=== PATIENT | female | born 1990 | race American Indian/Alaskan Native ===

== ENCOUNTER 2018-07-19 20:08 | Outpatient (CLI) | payer OTHER ==
[2018-07-19] MEDS ORDERED: LACTATED RINGERS 1,000 ML IV ONE (23:03)
[2018-07-20 00:04] LABS: Bilirubin,Urine NEG (Negative); Blood,Urine SM (Negative); Color,Urine Straw (Yellow); Mucus,Urine FEW /HPF; Protein,Urine <15 mg/dL mg/dL (Negative); Urobilinogen,Urine < 2.0 mg/dL (<2.0)
[2018-07-20] MEDS ORDERED: BRETHINE SUB-Q ONE (00:39)
[2018-07-20 01:06] VITALS: BP 123/78
[2018-07-20] MEDS ORDERED: LACTATED RINGERS 1,000 ML IV SCH (02:00)
== END 2018-07-20 02:30 | disposition home or self-care (01) ==
LOC: TRG 20:08 → LD 20:23 → TRG 07-20 02:30
PROVIDERS: ATTEND Obstetrics & Gynecology
DX: O47.02 False labor before 37 completed weeks of gestation, second trimester (principal); Z3A.24 24 weeks gestation of pregnancy
CPT/HCPCS: 59025; 81001; 96360; 96372; J3105; J7120

== ENCOUNTER 2018-08-08 08:34 | Outpatient (CLI) | payer OTHER ==
[2018-08-08 08:50] VITALS: BP 116/67
[2018-08-08] MEDS ORDERED: LACTATED RINGERS 1,000 ML IV ONE (09:11)
[2018-08-08] MEDS ORDERED: TYLENOL PO ONE (09:14)
[2018-08-08 09:32] LABS: Basophils % (Auto) 0.5 % (0.0-1.8); Eosinophils % (Auto) 0.2 % (0.0-4.3); Hematocrit 29.7 % (30.3-42.9); Hemoglobin 10.2 gm/dl (10.1-14.3); Lymphocytes # (Auto) 1.3 K/mm3 (1.2-5.4); Lymphocytes % (Auto) 18.2 % (13.4-35.0); Mean Corpuscular HGB Conc 34 % (30-34); Mean Corpuscular Hemoglobin 31 pg (28-32); Mean Corpuscular Volume 89 fl (79-97); Monocytes # (Auto) 0.8 K/mm3 (0.0-0.8); Monocytes % (Auto) 11.5 % (0.0-7.3); Platelet Count 268 K/mm3 (140-440); Red Blood Count 3.34 M/mm3 (3.65-5.03); Red Cell Distribution Width 14.3 % (13.2-15.2)
[2018-08-08 09:42] LABS: INR 0.89 (0.87-1.13)
[2018-08-08 09:43] LABS: Partial Thromboplastin Time 23.9 Sec. (24.2-36.6)
--- NOTE | 2018-08-08 12:02 | Ultrasound Report ---
FINAL REPORT EXAM: US OB BPP WO NON-STRESS HISTORY: decreased movement TECHNIQUE: Grayscale and color doppler ultrasound of the fetus was performed for biophysical profile. PRIORS: Ob ultrasound from 07/25/2018. FINDINGS: A single, live intrauterine fetus is present in cephalic presentation with a heart rate of 143-149 beats per minute. The amniotic fluid index is 12.6 centimeters. The maternal cervix is closed measuring 3.2 centimeters in length. A 16.2 x 14.4 x 13.7 centimeter fibroid is seen within the uterine fundus. Estimated gestational age is 26 weeks and 6 days with an HECTOR of 11/08/2018. Biophysical profile score of 8 out of 8 was noted. Scores of 2 out of 2 were given for breathing movements, movements, posterior and tone and qualitative amniotic fluid volume. IMPRESSION: Normal biophysical profile. Large fundal uterine fibroid.
--- NOTE | 2018-08-08 12:05 | Ultrasound Report ---
FINAL REPORT EXAM: US OB LIMITED HISTORY: r/o abruption TECHNIQUE: Limited OB ultrasound was performed. PRIORS: Ob ultrasound from 07/25/2018. FINDINGS: A single intrauterine fetus is present in cephalic presentation with a heart rate of 149 beats per minute. The maternal cervix is closed measuring 3.2 centimeters in length. 16.2 x 14.4 x 13.7 centimeter fibroid is seen within the uterine fundus. The placenta is grade 0 and fundal and to the left in location. No evidence of placental abruption. The amniotic fluid index is 12.6 centimeters. Estimated gestational age is 26 weeks and 6 days with an HECTOR of 11/08/2018. IMPRESSION: 1. No evidence of placental abruption. 2. Large fundal uterine fibroid.
== END 2018-08-08 10:40 | disposition home or self-care (01) ==
LOC: TRG 08:34
PROVIDERS: ATTEND Obstetrics & Gynecology
DX: O47.02 False labor before 37 completed weeks of gestation, second trimester (principal); O34.12 Maternal care for benign tumor of corpus uteri, second trimester; O10.012 Pre-existing essential hypertension complicating pregnancy, second trimester; O99.212 Obesity complicating pregnancy, second trimester; E66.01 Morbid (severe) obesity due to excess calories; D25.9 Leiomyoma of uterus, unspecified; Z3A.26 26 weeks gestation of pregnancy
CPT/HCPCS: 36415; 59025; 76815; 76819; 85025; 85610; 85730; 96360; J7120

== ENCOUNTER 2018-08-11 15:31 | Inpatient (IN) | payer OTHER ==
[2018-08-11] MEDS ORDERED: LACTATED RINGERS 500 ML IV ONE (17:17)
[2018-08-11] MEDS ORDERED: DEEP SEA NS PRN (21:02)
[2018-08-11] MEDS ORDERED: BENADRYL PO PRN (21:02)
[2018-08-11] MEDS ORDERED: AMBIEN PO PRN (21:02)
[2018-08-11] MEDS ORDERED: TYLENOL PO PRN (21:02)
[2018-08-11] MEDS ORDERED: COLACE PO PRN (21:02)
[2018-08-11] MEDS ORDERED: ZOFRAN IV PRN (21:02)
--- NOTE | 2018-08-11 21:18 | Ultrasound Report ---
FINAL REPORT PROCEDURE: US OB LIMITED TECHNIQUE: Real-time limited sonographic examination was performed for evaluation of size, position, heartbeat, fluid volume for each fetus with image documentation (1 or more fetuses). CPT 23779 HISTORY: R/O ABRUPTION COMPARISON: 08/08/2018 FINDINGS: MATERNAL Uterus: Previously seen fibroid is not visualized on this exam. Cervix length: Transabdominal measurement is 3.2 cm. Internal Os: Not well resolved. FETUS IUP: Single living intrauterine . Position: Cephalic. Placental position: Fundal and left lateral, without previa. The placenta is heterogeneous in echogenicity. No specific sonographic evidence for abruption Amniotic fluid volume: Amniotic fluid index measures 8.0 centimeters Heart rate and rhythm: 150 BPM, Regular . anatomic survey: Not performed. IMPRESSION: The placenta is heterogeneous in echogenicity. No specific sonographic evidence for abruption Amniotic fluid index measures 8.0 centimeters.
--- NOTE | 2018-08-11 21:45 | History and Physical Report ---
History of Present Illness Chief complaint: vaginal bleeding History of present illness: Pt is a 28 year old -Thai female primigravida HECTOR 11/08/18 at 27w2d with a complaint of bring red vaginal bleeding. She has had three visits to the ED within the past week for similar complaint. She denies contractions at this time. She has a recent hospitalization in early July for vaginal bleeding when she was diagnosed with a suspected chronic abruption. She has had care at [facility] since transfer into care in the second trimester with comanagement by [facility] secondary to multiple anomalies including Dandy Walker malformation, chronic hypertension, morbid obesity, subchorionic hemorrhage in first trimester resolved, Klebsiella UTI in February 2018, twin with vanishing twin with question of molar but no evidence on MFM scan 06/24/18, questionable previable PPROM in second trimester, large anterior uterine fibroid. She is GBS unknown. 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 Social history: no significant social history - Obstetrical History Expected Date of Delivery: 11/08/18 Actual Gestation: 27 Week(s) 2 Day(s) : 1 Medications and Allergies Allergies Allergy/AdvReac Type Severity Reaction Status Date / Time No Known Allergies Allergy Verified 08/08/18 09:18 Home Medications Medication Instructions Recorded Confirmed Last Taken Type Vit-Fe Fumar-FA [ 1 tab PO QDAY 07/20/18 08/08/18 08/07/18 09: 00 History Vitamin] 1 Active Meds: Active Medications Acetaminophen (Tylenol) 650 mg PO Q4H PRN PRN Reason: Pain MILD(1-3)/Fever >100.5/FLYNN Diphenhydramine HCl (Benadryl) 25 mg PO Q6H PRN PRN Reason: Itching Docusate Sodium (Colace) 100 mg PO Q12H PRN PRN Reason: Constipation Lactated Ringer's (Lactated Ringers) 1,000 mls @ 125 mls/hr IV DIRECT BEVERLEY Multivitamins/Iron/Calcium ( Vitamin) 1 each PO QDAY BEVERLEY Ondansetron HCl (Zofran) 4 mg IV Q6H PRN PRN Reason: Nausea And Vomiting Sodium Chloride (Deep Sea) 2 spray NS Q4H PRN PRN Reason: Congestion Zolpidem Tartrate (Ambien) 10 mg PO ONCE PRN PRN Reason: Sleep Review of Systems All systems: negative - Vital Signs Vital signs: Vital Signs Pulse Pulse Ox 71 100 08/11/18 16:47 08/11/18 16:47 Temp Pulse Resp BP Pulse Ox 70 99 08/11/18 17:37 08/11/18 17:37 Results Result Diagrams: 08/11/18 21:16 All other labs normal. Assessment and Plan A: IUP at 27w2d Chronic abruption with bright red vaginal bleeding Multiple anomalies including Dandy Walker Malformation Suspected previable PPROM, ruled out Chronic HTN Morbid Obesity P: Admit to antepartum service for observation Pad counts Ultrasound to evaluate for evidence of abruption Closely monitor maternal and status
[2018-08-11 21:53] LABS: Hematocrit 30.2 % (30.3-42.9); Hemoglobin 10.1 gm/dl (10.1-14.3); Mean Corpuscular HGB Conc 34 % (30-34); Mean Corpuscular Hemoglobin 30 pg (28-32); Mean Corpuscular Volume 89 fl (79-97); Platelet Count 232 K/mm3 (140-440); Red Blood Count 3.37 M/mm3 (3.65-5.03); Red Cell Distribution Width 14.7 % (13.2-15.2)
[2018-08-11] MEDS: LACTATED RINGERS 1,000 ML IV SCH (22:20)
[2018-08-12 02:38] LABS: Bacteria,Urine 1+ /HPF (Negative); Bilirubin,Urine NEG (Negative); Blood,Urine LG (Negative); Color,Urine Red (Yellow); Mucus,Urine 2+ /HPF; Urobilinogen,Urine < 2.0 mg/dL (<2.0)
[2018-08-12 02:40] LABS: RBC,Urine > 182.0 /HPF (0.0-6.0); WBC,Urine > 182.0 /HPF (0.0-6.0)
[2018-08-12] MEDS: LACTATED RINGERS 1,000 ML IV SCH ×3 (04:35→19:20)
--- NOTE | 2018-08-12 08:44 | Progress Note ---
Assessment and Plan A: IUP at 27w3d Chronic abruption with bright red vaginal bleeding Multiple anomalies including Dandy Walker Malformation Suspected previable PPROM, ruled out Chronic HTN Morbid Obesity P: close observation Pad counts Ultrasound to evaluate for evidence of abruption Closely monitor maternal and status Consult urgent/ spoke with Dr. Shin Patient had one decl for 2 min resolved with changing position, ivf Subjective - Subjective Date of service: 08/12/18 Principal diagnosis: IUp 27 weeks, chronic abruption, vag bleeding, multiple anomalies Patient reports: vaginal bleeding, movement normal, no loss of fluid, no contractions Objective - Vital Signs Vital Signs: Vital Signs - 12hr 08/11/18 08/11/18 08/11/18 21:55 22:13 22:43 Temperature 98.3 F Pulse Rate 62 65 Respiratory 18 Rate Blood Pressure 112/72 115/66 Blood Pressure [Right] O2 Sat by Pulse Oximetry 08/11/18 08/11/18 08/12/18 23:14 23:44 00:14 Temperature Pulse Rate 56 L 60 59 L Respiratory Rate Blood Pressure 100/50 97/55 99/52 Blood Pressure [Right] O2 Sat by Pulse Oximetry 08/12/18 08/12/18 08/12/18 00:44 01:14 04:34 Temperature 98.5 F Pulse Rate 61 65 65 Respiratory 16 Rate Blood Pressure 95/54 98/52 119/67 Blood Pressure [Right] O2 Sat by Pulse Oximetry 08/12/18 08/12/18 08/12/18 07:32 07:33 07:36 Temperature 98.2 F Pulse Rate 69 65 62 Respiratory 18 Rate Blood Pressure 116/67 Blood Pressure 116/67 [Right] O2 Sat by Pulse 98 99 Oximetry 08/12/18 08/12/18 08/12/18 07:37 07:42 07:47 Temperature Pulse Rate 73 60 60 Respiratory Rate Blood Pressure Blood Pressure [Right] O2 Sat by Pulse 99 100 100 Oximetry 08/12/18 08/12/18 08/12/18 07:52 07:54 07:57 Temperature Pulse Rate 62 71 59 L Respiratory Rate Blood Pressure Blood Pressure [Right] O2 Sat by Pulse 100 93 100 Oximetry 08/12/18 08/12/18 08/12/18 08:02 08:07 08:12 Temperature Pulse Rate 61 62 63 Respiratory Rate Blood Pressure Blood Pressure [Right] O2 Sat by Pulse 100 100 98 Oximetry 08/12/18 08/12/18 08/12/18 08:14 08:17 08:22 Temperature Pulse Rate 74 69 Respiratory Rate Blood Pressure Blood Pressure [Right] O2 Sat by Pulse 49 L 100 100 Oximetry - Exam Breasts: deferred Cardiovascular: Regular rate, Normal S1 Lungs: Clear to auscultation, Normal air movement Abdomen: Present: normal appearance, soft, normal bowel sounds. Absent: distention, tenderness, guarding Vulva: both: normal Uterus: Present: normal, firm. Absent: bogginess, tenderness FHR: category 2 Uterine Tone Measurement Phase: Resting - Labs Labs: Abnormal Labs 08/11/18 08/11/18 01:28 21:16 RBC 3.37 L Hct 30.2 L Urine WBC (Auto) > 182.0 H U Epithel Cells (Auto) 17.0 H Laboratory Results - last 24 hr 08/11/18 08/11/18 08/11/18 01:28 21:16 21:27 WBC 9.0 RBC 3.37 L Hgb 10.1 Hct 30.2 L MCV 89 MCH 30 MCHC 34 RDW 14.7 Plt Count 232 Urine Color Red Urine Turbidity Cloudy Urine pH 5.0 Ur Specific [place] 1.021 Urine Protein 100 mg/dl Urine Glucose (UA) Neg Urine Ketones 20 Urine Blood Lg Urine Nitrite Neg Urine Bilirubin Neg Urine Urobilinogen < 2.0 Ur Leukocyte Esterase Sm Urine WBC (Auto) > 182.0 H Urine RBC (Auto) > 182.0 U Epithel Cells (Auto) 17.0 H Urine Bacteria (Auto) 1+ Urine Mucus 2+ Blood Type B POSITIVE Antibody Screen Negative
--- NOTE | 2018-08-12 08:49 | Event Note ---
Date: 08/12/18 Reviewed lab data signs from urinalysis for UTI added rocephin for UTI
[2018-08-12] MEDS ORDERED: PHENERGAN PR PRN (09:21)
--- NOTE | 2018-08-12 09:21 | Anesthesia Consultation ---
Anesthesia Consult and Med Hx Date of service: 08/12/18 - Airway Anesthetic Teeth Evaluation: Good ROM Head & Neck: Adequate Mental/Hyoid Distance: Adequate Mallampati Class: Class III Intubation Access Assessment: Possibly Difficult - Pre-Operative Health Status ASA Pre-Surgery Classification: ASA3, Emergency Proposed Anesthetic Plan: Epidural, Spinal - Pulmonary Hx Asthma: No COPD: No Hx Pneumonia: No - Cardiovascular System Hx Hypertension: No - Central Nervous System Hx Seizures: No Hx Psychiatric Problems: No - Endocrine Hx Renal Disease: No Hx End Stage Renal Disease: No Hx Hypothyroidism: No Hx Hyperthyroidism: No - Hematic Hx Anemia: No Hx Sickle Cell Disease: No - Other Systems Hx Alcohol Use: No Hx Obesity: Yes (BMI 42.6) - Additional Comments Anesthesia Medical History Comments: chronic abruption
[2018-08-12] MEDS ORDERED: ANCEF/STERILE WATER 2 GM/20 ML 2 GM/20 ML SYRINGE IV ONE (09:27)
[2018-08-12] MEDS ORDERED: PEPCID IV ONE (09:27)
[2018-08-12] MEDS ORDERED: REGLAN ONE (09:27)
[2018-08-12] MEDS ORDERED: BICITRA ONE (09:27)
--- NOTE | 2018-08-12 09:47 | Consultation ---
History of Present Illness Consult date: 08/12/18 Requesting physician: MARIA INES MATUTE History of present illness: Ms. Jose Luis Haskins is a 28yo, , presenting to [facility] on 08/11/18 due to vaginal bleeding - Suspected Abruption This is patients third admission for vag bleeding was also seen 07/20/18 and this past Friday Patient showed pic on cell phone of large clots Patient now having repetitive decels on EFM Dr. 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 Patient reports she had Ped Neurology Consult Patient also had in house Ped Cardiology Consult at admission on 07/20/18 that was normal She previously declined elective termination early in . She is s/p amniocentesis and NIPT- Negative, male fetus. 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 - Obstetrical History : 1 Medications and Allergies Allergies Allergy/AdvReac Type Severity Reaction Status Date / Time No Known Allergies Allergy Verified 08/08/18 09:18 Home Medications Medication Instructions Recorded Confirmed Last Taken Type Vit-Fe Fumar-FA [ 1 tab PO QDAY 07/20/18 08/12/18 08/10/18 History Vitamin] Active Meds: Active Medications Acetaminophen (Tylenol) 650 mg PO Q4H PRN PRN Reason: Pain MILD(1-3)/Fever >100.5/FLYNN Betamethasone Acet/Betameth SodPhos (Celestone Soluspan) 12 mg IM ONCE ONE Stop: 08/12/18 09:28 Citric Acid/Sodium Citrate (Bicitra) 30 ml PO ONCE ONE Stop: 08/12/18 09:27 Diphenhydramine HCl (Benadryl) 25 mg PO Q6H PRN PRN Reason: Itching Diphenhydramine HCl (Benadryl) 12.5 mg IV Q2H PRN PRN Reason: Itching Docusate Sodium (Colace) 100 mg PO Q12H PRN PRN Reason: Constipation Famotidine (Pepcid) 20 mg IV ONCE ONE Stop: 08/12/18 09:27 Hydromorphone HCl (Dilaudid) 0.5 mg IV Q5M PRN PRN Reason: Breakthrough Pain Lactated Ringer's (Lactated Ringers) 1,000 mls @ 125 mls/hr IV DIRECT BEVERLEY Last Admin: 08/12/18 04:35 Dose: 125 mls/hr Ceftriaxone Sodium (Rocephin/Ns 1 Gm/50 Ml) 1 gm in 50 mls @ 100 mls/hr IV Q24HR BEVERLEY; Protocol Cefazolin Sodium (Ancef/Sterile Water 2 Gm/20 Ml) 2 gm in 20 mls @ 80 mls/hr IV PREOP NR; Protocol Lactated Ringer's (Lactated Ringers) 1,000 mls @ 2,250 mls/hr IV PREOP BEVERLEY Stop: 08/13/18 10:27 Oxytocin/Sodium Chloride (Pitocin/Ns 20 Unit/1000ml Drip) 20 units in 1,000 mls @ 0 mls/hr IV TITR BEVERLEY Metoclopramide HCl (Reglan) 10 mg IV ONCE ONE Stop: 08/12/18 09:27 Multivitamins/Iron/Calcium ( Vitamin) 1 each PO QDAY BEVERLEY Naloxone HCl (Narcan 0.4 Mg/1 Ml) 0.2 mg IV Q2MIN PRN PRN Reason: Res Rate </= 8 or 02 SAT < 92% Ondansetron HCl (Zofran) 4 mg IV Q6H PRN PRN Reason: Nausea And Vomiting Ondansetron HCl (Zofran) 4 mg IV Q8H PRN PRN Reason: Nausea And Vomiting Promethazine HCl (Phenergan) 25 mg PO Q6H PRN PRN Reason: Nausea And Vomiting Promethazine HCl (Phenergan) 25 mg VT Q6H PRN PRN Reason: Nausea And Vomiting Sodium Chloride (Deep Sea) 2 spray NS Q4H PRN PRN Reason: Congestion Sodium Chloride (Sodium Chloride Flush Syringe 10 Ml) 10 ml IV PRN NR Zolpidem Tartrate (Ambien) 10 mg PO ONCE PRN PRN Reason: Sleep - Vital Signs Vital signs: Vital Signs Pulse Pulse Ox 71 100 08/11/18 16:47 08/11/18 16:47 Temp Pulse Resp BP Pulse Ox 98.2 F 69 18 116/67 100 08/12/18 07:36 08/12/18 08:22 08/12/18 07:36 08/12/18 07:36 08/12/18 08:22 Results Result Diagrams: 08/11/18 21:16 Abnormal lab results 08/11/18 08/11/18 Range/Units 01:28 21:16 RBC 3.37 L (3.65-5.03) M/mm3 Hct 30.2 L (30.3-42.9) % Urine WBC (Auto) > 182.0 H (0.0-6.0) /HPF U Epithel Cells (Auto) 17.0 H (0-13.0) /HPF All other labs normal. Assessment and Plan Jones IUP at 27 weeks gestation - Suspected Placental Abruption Increased Vag Bleeding and Repetitive Decels on EFM Multiple anomalies: Dandy Walker Malformation Dilated Bilateral Hydrocephaly Absent Cerebellar Vermis Dangling Bilateral Chorid Plexus Splayed Cerebellum Large posterior Fossa Dilated 3rd and 4th ventricle Enlarge head Pediatric Echo - Normal Red vaginal bleeding S/P Betamethasone x 2 this was 2 weeks ago Morbid Obesity CHTN- not currently medicated S/P amniocentesis on 06/16/18, NIPT- negative, male Anemia Recommendations: 1. Discussed with patient and Dr. Matute due to 3rd admission and increased vaginal bleeding passing clots and non reassuring tracing will proceed with Delivery 2. Notify NICU - done 3. Notify Ped Neurology Suspected Dandy Walker 4. Type and Cross due to Anemia 5. Patient understands above recommendations and agrees with delivery at this time
[2018-08-12] MEDS ORDERED: ANCEF/STERILE WATER 2 GM/20 ML 2 GM/20 ML SYRINGE IV NR (10:00)
[2018-08-12] MEDS ORDERED: LACTATED RINGERS 1,000 ML IV SCH (10:00)
[2018-08-12] MEDS ORDERED: SODIUM CHLORIDE FLUSH SYRINGE 10 ML IV NR ×2 (10:00→12:00)
[2018-08-12] MEDS ORDERED: NACL 0.9% 500 ML 500 ML IV NR (10:02)
[2018-08-12] MEDS ORDERED: ANCEF/STERILE WATER 2 GM/20 ML IV ONE (10:12)
[2018-08-12] MEDS ORDERED: CELESTONE SOLUSPAN IM ONE (10:22)
[2018-08-12] MEDS ORDERED: NACL 0.9% IR ONE (10:23)
[2018-08-12] MEDS ORDERED: WATER FOR IRRIG STERILE IR ONE (10:23)
[2018-08-12] MEDS ORDERED: BENADRYL IV PRN (10:30)
[2018-08-12] MEDS ORDERED: BICITRA PO NR (10:30)
[2018-08-12] MEDS ORDERED: DILAUDID IV PRN (10:30)
[2018-08-12] MEDS ORDERED: REGLAN IV NR (10:30)
[2018-08-12] MEDS ORDERED: ZOFRAN IV PRN (10:30)
[2018-08-12] MEDS ORDERED: PEPCID IV NR (10:30)
[2018-08-12] MEDS ORDERED: NARCAN 0.4 MG/1 ML IV PRN ×3 (10:30→11:29)
[2018-08-12] MEDS ORDERED: CELESTONE SOLUSPAN IM NR (10:30)
[2018-08-12] MEDS ORDERED: PHENERGAN PO PRN (10:30)
[2018-08-12] MEDS: PITOCin/NS 20 UNIT/1000ML DRIP 20 UNITS/1,000 ML BAG IV SCH ×2 (10:33→12:00)
[2018-08-12] MEDS ORDERED: ASTRAMORPH PF 10MG/10ML ONE (10:50)
[2018-08-12] MEDS ORDERED: NACL 0.9% 1000 ML 1,000 ML ONE (11:00)
[2018-08-12] MEDS ORDERED: NEO SYNEPHRINE/NS Syringe(OR USE) IV ONE (11:00)
[2018-08-12] MEDS ORDERED: MILK OF MAGNESIA PO PRN (11:29)
[2018-08-12] MEDS ORDERED: TUCKS PAD TP PRN (11:29)
[2018-08-12] MEDS ORDERED: LANSINOH TP PRN (11:29)
[2018-08-12] MEDS ORDERED: MORPHINE IV PRN ×2 (11:29)
[2018-08-12] MEDS ORDERED: MYLICON PO PRN (11:29)
[2018-08-12] MEDS ORDERED: NORCO 5/325 PO PRN (11:29)
[2018-08-12] MEDS ORDERED: ANUCORT-HC PR PRN (11:29)
--- NOTE | 2018-08-12 11:46 | Operative Report ---
Operative Report Operative Report: DATE OF OPERATION:08/12/2018 PREOPERATIVE DIAGNOSES: 1. Intrauterine , 27+3 weeks 2. Multiple anomalies Dandy Walker 3. Chronic abruption 4. NRFHT with Prolong decels 5. Uterine Fibroids 6/ Morbid obesity POSTOPERATIVE DIAGNOSES: 1-6 nga PROCEDURE PERFORMED: Primary low transverse section. SURGEON:bijal Matute MD ANESTHESIA: Epidural. ESTIMATED BLOOD LOSS: 800 mL. COMPLICATIONS: None. FINDINGS: Male delivered from vertex presentation with Apgars of 8 and 9 , , enlarge uterus large fibroids fundal abnormal placenta ( multiple pieces cord dark brown color) , and three-vessel cord.male infant weight 2 pounds 5 oz. DESCRIPTION OF OPERATION: The patient was taken to the operating room, and after successful level of epidural anesthetic was obtained, she was placed on the table in the supine position. The abdomen and perineum were prepped and draped in the usual sterile fashion. A Pfannenstiel skin incision was made with a scalpel. The abdomen was entered in the normal Pfannenstiel way. Once inside the abdomen, the visceral peritoneum was bluntly and sharply dissected off the lower uterine segment. A transverse incision was made over the lower uterine segment and the incision extended laterally and curved upwards both ways with scissors. Once inside the uterus, the infant was delivered from the vertex presentation in standard fashion without complications. Tehe hysterotomy was near the left adnexa as the uterus was dextro positioned. Mouth and nose were suctioned with the bulb suction. The cord was doubly clamped and cut. The infant was handed off to the Pediatrics staff in attendance. The placenta was manually extracted from the uterus in pieces , and the uterus was not able to be exteriorized, and a dry sponge was used to wipe the uterine cavity of remaining blood clots and products of conception. The uterine incision was closed with two layers of running interlocking 0 vicryl sutures with a second layer imbricating the first. Subsequently, the visceral peritoneum overlying the lower uterine segment was approximated with a 2-0 running Vicryl suture. Hemostasis was adequate. Tissel, surgicell, endocell used. . The paracolic gutters were vigorously irrigated, and the abdominal wall closed in layers in the standard fashion. The fascia was approximated with two # 0 PDS sutures with each half of the incision being closed with a separate suture. Vicryl 3-0 interrupted sutures were used to approximate the subcutaneous tissues keegan needle used to close skin. A sterile dressing was applied. The uterus was expressed of any remaining blood clots. The patient was taken to the recovery room in good condition having tolerated the procedure well. At the end of the procedure, all sponge, needle and instrument counts were correct x 3.Intraop 1 unit pRBC added in OR.
--- NOTE | 2018-08-12 11:49 | Procedure Note ---
OB Delivery Note - Delivery Date of Delivery: 08/12/18 Surgeon: MARIA INES SOLARES Estimated blood loss: other (1300cc) - Section Preop diagnosis: nonreassuring FHR tracing Postop diagnosis: same section procedure: section Disposition: PACU Complications: none - A at 1 minute: 8 at 5 minutes: 9 Infant Gender: Male (2 pounds and 5 oz)
[2018-08-12] MEDS ORDERED: D5LR 1,000 ML IV SCH (12:00)
[2018-08-12] MEDS ORDERED: PITOCin/NS 20 UNIT/1000ML DRIP 20 UNITS/1,000 ML BAG IV SCH (12:00)
[2018-08-12] MEDS: TORADOL IV PRN ×2 (12:55→19:20)
[2018-08-12 17:56] LABS: Hematocrit 28.8 % (30.3-42.9); Hemoglobin 9.6 gm/dl (10.1-14.3); Mean Corpuscular HGB Conc 33 % (30-34); Mean Corpuscular Hemoglobin 29 pg (28-32); Mean Corpuscular Volume 88 fl (79-97); Platelet Count 238 K/mm3 (140-440); Red Blood Count 3.26 M/mm3 (3.65-5.03); Red Cell Distribution Width 15.1 % (13.2-15.2)
[2018-08-12] MEDS: ROCEPHIN/NS 1 GM/50 ML 1 GM/50 ML BAG IV SCH ×2 (18:50→22:16)
[2018-08-12 20:47] LABS: Band Neutrophils # (Manual) 0.1 K/mm3; Basophils % (Manual) 0 % (0.0-1.8); Eosinophils % (Manual) 0 % (0.0-4.3); Total Cells Counted 100
[2018-08-12 20:48] LABS: Anisocytosis 1+; Platelet Estimate Consistent w Auto
[2018-08-12 23:21] LABS: Hematocrit 27.7 % (30.3-42.9); Hemoglobin 9.2 gm/dl (10.1-14.3)
[2018-08-13] MEDS: TORADOL IV PRN (04:14)
[2018-08-13] MEDS ORDERED: M-M-R II VACCINE SUB-Q ONE (06:00)
[2018-08-13] MEDS ORDERED: BOOSTRIX IM ONE (06:00)
--- NOTE | 2018-08-13 08:59 | Progress Note ---
Assessment and Plan O: VSS AF PP H/H: 9.2/.7 A: Stable PP Day 1 S/P 27 week C/S Anemia P: Iron BID Continue PP orders Subjective - Subjective Date of service: 08/13/18 Principal diagnosis: IUp 27 weeks, chronic abruption, vag bleeding, multiple anomalies Patient reports: appetite normal, voiding normally, pain well controlled, ambulating normally, no flatus : doing well, in NICU Objective - Vital Signs Latest vital signs: Vital Signs Temp Pulse Resp BP BP BP Pulse Ox 08/13/18 03:30 98.5 F 65 20 118/72 98 08/12/18 23:00 98.5 F 63 20 106/57 100 08/12/18 17:25 98.4 F 67 20 108/58 08/12/18 13:40 97.9 F 58 L 20 92/53 08/12/18 12:45 98.1 F 62 18 111/67 100 08/12/18 12:30 55 L 28 H 111/63 100 08/12/18 12:15 56 L 14 107/57 100 08/12/18 12:00 97.5 F L 57 L 17 103/59 100 08/12/18 11:55 64 12 101/68 100 08/12/18 11:50 60 24 109/54 100 08/12/18 11:45 55 L 17 90/49 100 Intake and Output 08/12/18 08/13/18 08/13/18 22:59 06:59 14:59 Intake Total 1170 Output Total 400 750 Balance 770 -750 Intake: IV 1050 Lactated Ringers 1,000 ml 1000 @ 125 mls/hr IV DIRECT BEVERLEY Rx#:[id number] ROCEPHIN/NS 1 GM/50 ML 1 50 gm In 50 ml @ 100 mls/hr IV Q24HR BEVERLEY Rx#: [id number] Oral 120 Output: Urine 400 750 Indwelling Catheter 450 Self-Catheterization 300 Void 400 Other: Total, Intake Amount 120 Total, Output Amount 400 300 - Exam Breasts: Present: normal, Lungs: Present: Normal air movement Abdomen: Present: normal appearance, soft. Absent: distention Uterus: Present: normal, firm, fundal height at umbilicus Extremities: Present: normal Incision: Present: normal, dry, intact, dressed - Labs Labs: Abnormal lab results 08/11/18 08/12/18 08/12/18 Range/Units 21:27 16:52 23:06 WBC 13.6 H (4.5-11.0) K/mm3 RBC 3.26 L (3.65-5.03) M/mm3 Hgb 9.6 L 9.2 L (10.1-14.3) gm/dl Hct 28.8 L 27.7 L (30.3-42.9) % Seg Neuts % (Manual) 94.0 H (40.0-70.0) % Lymphocytes % (Manual) 3.0 L (13.4-35.0) % Seg Neutrophils # Man 12.8 H (1.8-7.7) K/mm3 Lymphocytes # (Manual) 0.4 L (1.2-5.4) K/mm3 Crossmatch See Detail
[2018-08-13] MEDS: ROCEPHIN/NS 1 GM/50 ML 1 GM/50 ML BAG IV SCH (10:38)
[2018-08-13] MEDS: FEOSOL PO SCH (10:39)
[2018-08-13] MEDS: MOTRIN PO PRN ×2 (10:39→20:27)
[2018-08-13] MEDS: PERCOCET 5/325 PO PRN (10:40)
[2018-08-13] MEDS: PRENATAL VITAMIN PO SCH (10:40)
[2018-08-14] MEDS: MOTRIN PO PRN ×2 (05:59→15:34)
[2018-08-14] MEDS: ROCEPHIN/NS 1 GM/50 ML 1 GM/50 ML BAG IV SCH (12:00)
[2018-08-14] MEDS: PRENATAL VITAMIN PO SCH (15:33)
[2018-08-14] MEDS: FEOSOL PO SCH (15:33)
[2018-08-14] MEDS: PERCOCET 5/325 PO PRN (15:33)
[2018-08-14 17:29] VITALS: BP 129/72
--- NOTE | 2018-08-14 17:49 | Progress Note ---
Assessment and Plan A: POD#2 s/p primary at 27 wks P: Discharge home with follow up in 2 weeks for incision check. Subjective - Subjective Date of service: 08/14/18 Principal diagnosis: IUp 27 weeks, chronic abruption, vag bleeding, multiple anomalies Interval history: Pt without complaints today. Her son has been transferred to [facility] and she would like to be discharged. Patient reports: appetite normal, voiding normally, pain well controlled, flatus , ambulating normally, no bowel movement : transported Objective - Vital Signs Latest vital signs: Vital Signs Temp Pulse Resp BP Pulse Ox 08/14/18 16:22 98.4 F 87 18 129/72 08/14/18 15:34 20 08/14/18 15:33 20 08/14/18 08:05 98.3 F 90 18 115/64 08/14/18 05:59 20 08/14/18 01:35 98.3 F 73 20 136/87 98 08/13/18 20:27 20 Intake and Output 08/14/18 08/14/18 08/14/18 06:59 14:59 22:59 Intake Total 360 120 240 Balance 360 120 240 Intake: Oral 360 120 240 Other: Total, Intake Amount 120 120 240 # Voids Self-Catheterization 1 1 - Exam Breasts: Present: deferred Cardiovascular: Present: Regular rate Lungs: Present: Clear to auscultation Abdomen: Present: soft (obese ), normal bowel sounds Uterus: Present: fundal height above umbilicus (fibroid uterus ) Extremities: Present: normal Incision: Present: intact
--- NOTE | 2018-08-14 17:52 | Discharge Summary ---
Providers - Providers Date of Admission: 08/11/18 21:46 Date of discharge: 08/14/18 Attending physician: RUTH FLOR Primary care physician: JENNIFER MATUTE MD Hospitalization Reason for admission: vaginal bleeding Delivery: Procedure: section, primary low transverse Procedure details: Please see operative note. Incision: intact Other procedures: none complications: none Discharge diagnosis: delivery [place] baby: male Hospital course: She was admitted with vaginal bleeding at 27 weeks. He ultimately was delivered by primary section. Please see operative note for full details. The remainder of her course was uncomplicated and she met discharge criteria on postoperative day #2. She will return to the office to see Dr. Jennifer Matute in 2 weeks. Condition at discharge: Stable Disposition: DC-01 TO HOME OR SELFCARE - Discharge Diagnoses (1) delivery Status: Acute (2) delivery delivered Status: Acute (3) Chronic hypertension Status: Acute (4) Morbid obesity Status: Acute (5) Status: Acute Qualifiers: Weeks of gestation: 27 weeks Qualified Code(s): Z3A.27 - 27 weeks gestation of (6) Vaginal bleeding Status: Acute Plan - Discharge Medications Prescriptions: Ferrous Sulfate 325 mg PO TID #90 tablet. Ibuprofen [Motrin] 600 mg PO Q8H PRN #30 tablet PRN Reason: Pain oxyCODONE /ACETAMINOPHEN [Percocet 5/325] 1 tab PO Q6HR PRN #30 tablet PRN Reason: Pain - Provider Discharge Summary Activity: routine, no sex for 6 weeks, no heavy lifting 4 weeks, no strenuous exercise Diet: routine Instructions: routine Additional instructions: [] Smoking cessation referral if applicable(refer to patient education folder for contact #) [] Refer to [facility] Booklet Call your doctor immediately for: * Fever > 100.5 * Heavy vaginal bleeding ( >1 pad per hour) * Severe persistent headache * Shortness of breath * Reddened, hot, painful area to leg or breast * Drainage or odor from incision. * Keep incision clean and dry at all times and follow doctor's instructions regarding bathing/showering - Follow up plan Follow up: JENNIFER MATUTE MD [Primary Care Provider] - 7 Days
== END 2018-08-14 19:05 | disposition home or self-care (01) | DRG 765 ==
LOC: TRG 15:31 → OBSVTOIN 21:46 → LD 21:46 → OB 08-12 16:29
PROVIDERS: ADMIT Obstetrics & Gynecology; ATTEND Obstetrics & Gynecology
PROC: 10D00Z1 Extraction of Products of Conception, Low, Open Approach (ICD-10-PCS; principal; 2018-08-12)
PROC: 30233N1 Transfusion of Nonautologous Red Blood Cells into Peripheral Vein, Percutaneous Approach (ICD-10-PCS; 2018-08-12)
PROC: 3E0234Z Introduction of Serum, Toxoid and Vaccine into Muscle, Percutaneous Approach (ICD-10-PCS; 2018-08-13)
DX: O10.02 Pre-existing essential hypertension complicating childbirth (principal); O45.92 Premature separation of placenta, unspecified, second trimester; O23.43 Unspecified infection of urinary tract in pregnancy, third trimester; Z68.41 Body mass index [BMI] 40.0-44.9, adult; E66.01 Morbid (severe) obesity due to excess calories; O34.12 Maternal care for benign tumor of corpus uteri, second trimester; D25.9 Leiomyoma of uterus, unspecified; O99.214 Obesity complicating childbirth; O76 Abnormality in fetal heart rate and rhythm complicating labor and delivery; Z3A.27 27 weeks gestation of pregnancy; Z37.0 Single live birth; Z71.3 Dietary counseling and surveillance; Z23 Encounter for immunization; Q03.1 Atresia of foramina of Magendie and Luschka; O99.02 Anemia complicating childbirth; D64.9 Anemia, unspecified
CPT/HCPCS: 36415; 76815; 81001; 85007; 85014; 85018; 85025; 85027; 86850; 86900; 86901; 86920; 87086; 88305; 90471; 90715; 99211; C1765; C9250; G0463; J0690; J0696; J0702; J1885; J2274; J2370; J2590; J2765; J7030; J7120; P9016

== ENCOUNTER 2018-08-20 20:10 | Emergency (ER) | payer OTHER ==
[2018-08-20 21:00] LABS: Basophils # (Auto) 0.1 K/mm3 (0.0-0.1); Basophils % (Auto) 0.9 % (0.0-1.8); Eosinophils # (Auto) 0.1 K/mm3 (0.0-0.4); Eosinophils % (Auto) 1.8 % (0.0-4.3); Hematocrit 26.9 % (30.3-42.9); Lymphocytes % (Auto) 28.7 % (13.4-35.0); Mean Corpuscular HGB Conc 33 % (30-34); Mean Corpuscular Hemoglobin 30 pg (28-32); Mean Corpuscular Volume 89 fl (79-97); Monocytes # (Auto) 0.6 K/mm3 (0.0-0.8); Monocytes % (Auto) 8.6 % (0.0-7.3); Platelet Count 346 K/mm3 (140-440); Red Blood Count 3.03 M/mm3 (3.65-5.03); Red Cell Distribution Width 15.1 % (13.2-15.2)
[2018-08-20 21:28] LABS: BUN/Creatinine Ratio 10; Blood Urea Nitrogen 6 mg/dL (7-17); Calcium 8.5 mg/dL (8.4-10.2); Hemolysis Index 0
[2018-08-20 22:12] LABS: Bilirubin,Urine NEG (Negative); Blood,Urine SM (Negative); Color,Urine Straw (Yellow); Protein,Urine <15 mg/dL mg/dL (Negative); Urobilinogen,Urine < 2.0 mg/dL (<2.0)
[2018-08-20 22:15] VITALS: BP 148/80
--- NOTE | 2018-08-20 22:36 | Emergency Department Report ---
HPI - General Chief Complaint: High BP Time Seen by Provider: 08/20/18 22:23 - HPI HPI: 89-year-old female presents to ED with elevated blood pressure at home. She gave about a week ago. States she had had some elevated blood pressures without truly diagnosis of hypertension. She came here to check her BP. There are no mild headache, but denies any chest pain, shortness of breath, change of vision, dizziness. ED Past Medical Hx - Past Medical History Previous Medical History?: Yes Hx Hypertension: Yes Hx Congestive Heart Failure: No Hx Diabetes: No Hx Deep Vein Thrombosis: No Hx Renal Disease: No Hx Sickle Cell Disease: No Hx Seizures: No Hx Asthma: No Hx COPD: No Hx HIV: No - Surgical History Past Surgical History?: Yes Additional Surgical History: c sec - Social History Smoking Status: Never Smoker Substance Use Type: None - Medications Home Medications: Home Medications Medication Instructions Recorded Confirmed Last Taken Type Vit-Fe Fumar-FA [ 1 tab PO QDAY 07/20/18 08/12/18 08/10/18 History Vitamin] Ferrous Sulfate 325 mg PO TID #90 tablet. 08/12/18 Unknown Rx Ibuprofen [Motrin] 600 mg PO Q8H PRN #30 tablet 08/12/18 Unknown Rx oxyCODONE /ACETAMINOPHEN [Percocet 1 tab PO Q6HR PRN #30 tablet 08/12/18 Unknown Rx 5/325] ED Review of Systems ROS: Stated complaint: HBP Other details as noted in HPI Physical Exam - Physical Exam Vital Signs: Vital Signs 08/20/18 08/20/18 20:21 22:14 Temperature 98.3 F Pulse Rate 58 L Respiratory 16 Rate Blood Pressure 146/85 Blood Pressure 148/80 [Right] O2 Sat by Pulse 99 Oximetry Physical Exam: - Physical Exam Physical Exam: - General Limitations: No Limitations General appearance: alert, in no apparent distress. - Head Head exam: Present: atraumatic, normocephalic - Eye Eye exam: Present: normal appearance - ENT ENT exam: Present: mucous membranes moist - Neck Neck exam: Present: normal inspection - Respiratory Respiratory exam: Present: normal lung sounds bilaterally. Absent: respiratory distress - Cardiovascular Cardiovascular Exam: Present: normal rhythm. Absent: systolic murmur, diastolic murmur, rubs, gallop - GI/Abdominal GI/Abdominal exam: Present: soft, normal bowel sounds - Extremities Exam Extremities exam: Present: normal inspection - Back Exam Back exam: Present: normal inspection - Neurological Exam Neurological exam: Present: alert, oriented X3 - Psychiatric Psychiatric exam: normal affect and mood - Skin Skin exam: Present: warm, dry, intact, normal color. Absent: rash ED Course Vital Signs 08/20/18 08/20/18 20:21 22:14 Temperature 98.3 F Pulse Rate 58 L Respiratory 16 Rate Blood Pressure 146/85 Blood Pressure 148/80 [Right] O2 Sat by Pulse 99 Oximetry ED Medical Decision Making - Lab Data Result diagrams: 08/20/18 20:43 08/20/18 20:43 - Medical Decision Making BP checked in ED twice, all around 140s over 80s. Advised patient is to follow- up tomorrow with her [facility] [employer] [facility] for further treatment. She voiced understanding, states she will follow up with [facility] tomorrow. - Differential Diagnosis hypertensive emergency, essential hypertension Critical care attestation.: If time is entered above; I have spent that time in minutes in the direct care of this critically ill patient, excluding procedure time. ED Disposition Clinical Impression: Hypertension Qualifiers: Hypertension type: essential hypertension Qualified Code(s): I10 - Essential ( primary) hypertension Disposition: -01 TO HOME OR SELFCARE Is pt being admited?: No Does the pt Need Aspirin: No Condition: Stable Instructions: Hypertension (ED) Referrals: PRIMARY CARE, [Primary Care Provider] - 3-5 Days
== END 2018-08-20 22:54 | disposition home or self-care (01) ==
LOC: ED 20:10
DX: I10 Essential (primary) hypertension (principal)
CPT/HCPCS: 36415; 80048; 81001; 83735; 85025; 99283